=== PATIENT | female | born 1995 | race Caucasian/White ===

== ENCOUNTER 2019-11-10 19:53 | Emergency (ER) | payer OTHER, MEDICAID ==
--- NOTE | 2019-11-10 21:29 | ER Document Report ---
ED Medical Screen (RME) - General Chief Complaint: Vag Bleeding, +preg <12wks Stated Complaint: VAGINAL BLEEDING Time Seen by Provider: 11/10/19 21:24 Notes: HPI: 24-year-old female who is approximately 6 weeks by dates presenting for vaginal bleeding onset today. Patient lives in [facility] she has not yet had ultrasound for this . Does have history of 1 prior miscarriage. She did not have any clotting denies pelvic cramping or abdominal pain. No fever I have greeted and performed a rapid initial assessment of this patient. A comprehensive ED assessment and evaluation of the patient, analysis of test resu lts and completion of the medical decision making process will be conducted by additional ED providers PHYSICAL EXAMINATION: GENERAL: Well-appearing, well-nourished and in mild acute distress. HEAD: Atraumatic, normocephalic. EYES: sclera anicteric, conjunctiva are normal. ENT: Moist mucous membranes. NECK: Normal range of motion LUNGS: Normal work of breathing HEART: 2+ radial pulses bilaterally ABD: limited by positioning for exam in triage. No reproducible pain on palpation uterus not palpable EXTREMITIES: no pitting or edema. No cyanosis. NEUROLOGICAL: No focal neurological deficits. Moves all extremities spontaneously and on command. PSYCH: Normal mood, normal affect. SKIN: Warm, Dry, normal turgor, no rashes or lesions noted. TRAVEL OUTSIDE OF THE [place] IN LAST 30 DAYS: No - Related Data Allergies/Adverse Reactions: No Known Allergies Allergy (Unverified 11/10/19 21:19) Physical Exam - Vital signs Vitals: Temp Pulse Resp BP Pulse Ox 99.0 F 80 20 150/83 H 100 11/10/19 20:43 11/10/19 20:43 11/10/19 20:43 11/10/19 20:43 11/10/19 20:43 Course - Vital Signs Vital signs: Temp Pulse Resp BP Pulse Ox 99.0 F 80 20 150/83 H 100 11/10/19 20:43 11/10/19 20:43 11/10/19 20:43 11/10/19 20:43 11/10/19 20:43
[2019-11-10 21:55] LABS: ABSOLUTE BASOPHILS # (AUTO) 0.1 10^3/uL (0.0-0.2); ABSOLUTE LYMPHOCYTES (AUTO) 2.9 10^3/uL (0.5-4.7); ABSOLUTE MONOCYTES (AUTO) 0.6 10^3/uL (0.1-1.4); ABSOLUTE NEUT (AUTO) 7.8 10^3/uL (1.7-8.2); EOSINOPHILS % (AUTO) 0.2 % (0-6); HEMATOCRIT 40.2 % (36.0-47.0); HEMOGLOBIN 13.9 g/dL (12.0-15.5); LYMPHOCYTES % (AUTO) 25.1 % (13-45); MEAN CORPUSCULAR HEMOGLOBIN 31.8 pg (27.0-33.4); MEAN CORPUSCULAR HGB CONC 34.7 g/dL (32.0-36.0); MEAN CORPUSCULAR VOLUME 92 fl (80-97); MONOCYTES % (AUTO) 5.5 % (3-13); PLATELET COUNT 298 10^3/uL (150-450); RED BLOOD COUNT 4.38 10^6/uL (3.72-5.28); RED CELL DISTRIBUTION WIDTH 11.9 % (11.5-14.0); SEGMENTED NEUTROPHILS % (AUTO) 68.2 % (42-78); TOTAL CELLS COUNTED % (AUTO) 100 %; WHITE BLOOD COUNT 11.5 10^3/uL (4.0-10.5)
[2019-11-10 22:08] LABS: APPEARANCE,URINE SLIGHTLY-CLOUDY; BILIRUBIN,URINE NEGATIVE (NEGATIVE); COLOR,URINE YELLOW; GLUCOSE, URINE NEGATIVE (NEGATIVE); KETONES,URINE NEGATIVE (NEGATIVE); LEUKOCYTE ESTERASE,URINE NEGATIVE (NEGATIVE); NITRITE,URINE NEGATIVE (NEGATIVE); PROTEIN,URINE NEGATIVE (NEGATIVE); URINE SPECIFIC GRAVITY 1.012; UROBILINOGEN,URINE NEGATIVE mg/dL (<2.0)
[2019-11-10 22:13] LABS: ALBUMIN 4.9 g/dL (3.5-5.0); ALKALINE PHOSPHATASE 40 U/L (38-126); ANION GAP 11 (5-19); ASPARTATE AMINO TRANSFERASE 22 U/L (14-36); BILIRUBIN,TOTAL 0.5 mg/dL (0.2-1.3); BLOOD UREA NITROGEN 5 mg/dL (7-20); CALCIUM 10.1 mg/dL (8.4-10.2); CARBON DIOXIDE 24 mmol/L (22-30); CHLORIDE 102 mmol/L (98-107); GLUCOSE 97 mg/dL (75-110); POTASSIUM 4.1 mmol/L (3.6-5.0); TOTAL PROTEIN 7.5 g/dL (6.3-8.2)
--- NOTE | 2019-11-10 22:48 | RADIOLOGY REPORT (SQ) ---
EXAM: First trimester OB ultrasound CLINICAL INDICATION: Vaginal bleeding COMPARISON: None. TECHNIQUE: First trimester OB ultrasound was performed. FINDINGS: Uterus: The cervix is closed and measures 3.2 cm in length. The uterus measures 9.4 x 6.4 x 5.0 cm. A gestational sac is identified and adjacent to the gestational sac is a mixed echogenicity area measuring 1.2 x 1.1 x 1.4 cm which most likely represents a small subchorionic hemorrhage. [place]-rump length is 4.6 mm which correlates with a gestational age of six weeks one day Estimated delivery date of 07/04/2020. cardiac activity is 135 bpm. Ovaries and adnexa: The right ovary measures 3.9 x 3.1 x 2.7 cm and contains a corpus luteal cyst which measures 2.5 x 2.3 cm. There is also a solid area in the right ovary which measures 1.3 cm. The left ovary was not visualized. No free fluid. IMPRESSION: 1. Single living intrauterine with estimated gestational age of six weeks one day and estimated delivery date of 07/04/2020. This correlates with the clinical age. 2. Corpus luteal cyst in the right ovary. There is a more solid area in the right ovary also seen which is nonspecific.
--- NOTE | 2019-11-11 01:25 | ER Document Report ---
ED GI/ - General Chief Complaint: Vag Bleeding, +preg <12wks Stated Complaint: VAGINAL BLEEDING Time Seen by Provider: 11/10/19 21:24 Notes: Patient is a 24-year-old female, G2, P0 at about 6 weeks gestation by last menstrual period that comes emergency department for chief complaint of vaginal bleeding that started over the past day. She denies abdominal pain, vomiting, but she does report intermittent nausea. She denies fever, dysuria, flank pain. She takes no daily medications except for B6. She denies any surgeries, first was a first trimester miscarriage. TRAVEL OUTSIDE OF THE [place] IN LAST 30 DAYS: No - Related Data Allergies/Adverse Reactions: No Known Allergies Allergy (Unverified 11/10/19 21:19) Past Medical History - General Information source: Patient - Social History Smoking Status: Never Smoker Frequency of alcohol use: None Drug Abuse: None Lives with: Family Family History: Reviewed & Not Pertinent Patient has suicidal ideation: No Patient has homicidal ideation: No - Medical History Medical History: Negative Past Surgical History: Reports: Hx Appendectomy - Immunizations Immunizations up to date: Yes Hx Diphtheria, Pertussis, Tetanus Vaccination: Yes Review of Systems - Review of Systems Constitutional: No symptoms reported EENT: No symptoms reported Cardiovascular: No symptoms reported Respiratory: No symptoms reported Gastrointestinal: No symptoms reported Genitourinary: No symptoms reported Female Genitourinary: See HPI Musculoskeletal: No symptoms reported Skin: No symptoms reported Hematologic/Lymphatic: No symptoms reported Neurological/Psychological: No symptoms reported Physical Exam - Vital signs Vitals: Temp Pulse Resp BP Pulse Ox 99.0 F 80 20 150/83 H 100 11/10/19 20:43 11/10/19 20:43 11/10/19 20:43 11/10/19 20:43 11/10/19 20:43 - Notes Notes: GENERAL: Alert, interacts well. No acute distress. HEAD: Normocephalic, atraumatic. EYES: Pupils equal, round, and reactive to light. Extraocular movements intact. ENT: Oral mucosa moist, tongue midline. Oropharynx unremarkable. Airway patent. LUNGS: Clear to auscultation bilaterally, no wheezes, rales, or rhonchi. No res piratory distress. HEART: Regular rate and rhythm. No murmur ABDOMEN: Soft, non-tender. Non-distended. Bowel sounds present in all 4 quadrants. GENITOURINARY: Deferred EXTREMITIES: Moves all 4 extremities spontaneously. No edema, normal radial and dorsalis pedis pulses bilaterally. No cyanosis. BACK: no cervical, thoracic, lumbar midline tenderness. No saddle anesthesia, normal distal neurovascular exam. Moves all extremities in full range of motion. NEUROLOGICAL: Alert and oriented x3. Normal speech. Cranial nerves II through XII grossly intact. PSYCH: Anxious, asks a lot of questions, appears nervous SKIN: Warm, dry, normal turgor. No rashes or lesions noted. Course - Re-evaluation Re-evalutation: Patient is in a soft nontender abdomen. She has had no pain. Patient does not have any heavy vaginal bleeding. Vital signs initially showing hypertension but patient was very anxious initially. CBC unremarkable, hormone elevated as expected, RhoGam is not indicated. Ultrasound shows intrauterine with small subchorionic hemorrhage. No concerning findings otherwise except for an area next to the ovary which is nonspecific. Provided with report, discussed subchorionic bleed recommendations, intrauterine details, and importance of follow-up for recheck of the area near the ovary. Hieu hernandez will follow-up with CUSTODIAL AIDE closely. She has no current symptoms. Discussed recommendations, return precautions. Patient and mother state appreciation and agreement. Stable time of discharge. Provided with nausea medications to use as needed on request. - Vital Signs Vital signs: Temp Pulse Resp BP Pulse Ox 98.4 F 77 16 122/76 99 11/11/19 01:33 11/11/19 01:33 11/11/19 01:33 11/11/19 01:33 11/11/19 01:33 - Laboratory Result Diagrams: 11/10/19 21:35 11/10/19 21:35 Laboratory results interpreted by me: 11/10/19 11/10/19 11/10/19 21:35 21:35 21:35 WBC 11.5 H BUN 5 L Creatinine 0.44 L Beta HCG, Quant 29314.00 H Urine Blood SMALL H Discharge - Discharge Clinical Impression: Vaginal bleeding affecting early Condition: Stable Disposition: HOME, SELF-CARE Additional Instructions: The work-up indicates a subchorionic hemorrhage as we discussed. This should r esolve with time. I recommend pelvic rest precautions including avoiding lifting, jumping, running, sexual intercourse, or significant physical activity until symptoms resolve/cleared by CUSTODIAL AIDE. Take the Reglan prescribed if needed for nausea, you can also take diphenhydramine (Benadryl) with this if needed for nausea. Return for any concerning symptoms including severe pain, heavy bleeding with dizziness or passing out, or any other concerning symptoms. Prescriptions: Metoclopramide HCl [Reglan] 5 mg PO ASDIR PRN #30 tablet PRN Reason:
[2019-11-11 01:35] VITALS: BP 122/76
== END 2019-11-11 01:33 | disposition home or self-care (01) ==
LOC: ER 19:53
DX: O20.9 Hemorrhage in early pregnancy, unspecified (principal); R11.0 Nausea; Z3A.01 Less than 8 weeks gestation of pregnancy
CPT/HCPCS: 36415; 76817; 80053; 81001; 84702; 85025; 86900; 86901; 93976; 99284